=== PATIENT | male | born 1985 | race Caucasian/White ===

== ENCOUNTER → 2016-10-08 | Outpatient (CLI) | payer OTHER | LOC: COL.RAD 08:03 | DX: R31.9 Hematuria, unspecified (principal); Z87.442 Personal history of urinary calculi ==

== ENCOUNTER 2016-10-15 10:07 | Day surgery (SDC) | payer OTHER ==
[2016-10-15] VITALS (7 sets, daily range): BP systolic 107–145; BP diastolic 62–88; PULSE 53–63; TEMP 97.3–98.4
[~2016-10-15] VITALS: Ht 185.4 cm; Wt 114.8 kg
== END 2016-10-15 15:20 | disposition home or self-care (01) ==
LOC: SDCO 10:07
DX: N20.1 Calculus of ureter (principal); E78.5 Hyperlipidemia, unspecified; Z80.9 Family history of malignant neoplasm, unspecified; Z87.891 Personal history of nicotine dependence
CPT/HCPCS: C1769; C2617; J0690; J1885; J2405; J2704; J3010; J7120; Q9967

== ENCOUNTER 2017-07-08 07:28 | Emergency (ER) | payer OTHER ==
[~2017-07-08] VITALS: Ht 185.4 cm; Wt 113.6 kg
[2017-07-08 07:31] VITALS: TEMP 98.3
[2017-07-08 08:23] LABS: BASO % 0.8 % (0.0-2.0); EOS # 0.1 (0.0-0.7); EOS % 2.3 % (0-4.0); GRAN # 2.2 (1.4-6.5); GRAN % 47.3 % (42.2-75.2); HEMATOCRIT 46.6 % (42.0-52.0); HEMOGLOBIN 15.5 g/dl (13.5-18.0); LYMPH # 1.9 (1.2-3.4); LYMPH % 39.9 % (20.0-51.0); MEAN CELL VOLUME 86 fl (80.0-100.0); MEAN CORPUSCULAR HEMOGLOBIN 29 pg (27.0-31.0); MEAN CORPUSCULAR HGB CONC 33 g/dl (33.0-37.0); MEAN PLATELET VOLUME 9.6 fl (7.4-10.4); MONO # 0.4 (0.1-0.6); MONO % 9.3 % (1.7-9.3); PLATELET COUNT 197 K/mm3 (130-400); RED BLOOD COUNT 5.42 M/mm3 (4.20-5.60); WHITE BLOOD COUNT 4.7 K/mm3 (4.8-10.8)
[2017-07-08 08:42] LABS: ADJUSTED CALCIUM 9.5 mg/dL (8.4-10.2); ALANINE AMINOTRANSFERASE 68 U/L (21-72); ALBUMIN 4.7 gm/dL (3.5-5.0); ALKALINE PHOSPHATASE 75 U/L (50-136); ANION GAP 11 mmol/L (7-16); BILIRUBIN,TOTAL 0.7 mg/dL (0.0-1.0); BLOOD UREA NITROGEN 14 mg/dL (9-20); C-REACTIVE PROTEIN < 0.5 mg/dL (0.0-0.9); CALCIUM 10.1 mg/dL (8.4-10.2); CARBON DIOXIDE 26 mmol/L (22-30); CHLORIDE 102 mmol/L (98-107); CREATININE, serum 0.77 mg/dL (0.66-1.25); GLUCOSE 94 mg/dL (74-106); POTASSIUM 4.1 mmol/L (3.4-5.0); SODIUM 139 mmol/L (137-145); TOTAL PROTEIN 7.8 gm/dL (6.4-8.2)
[2017-07-08 08:48] LABS: COLLECTION METHOD CLEAN CATCH
[2017-07-08 08:51] LABS: TROPONIN-I < 0.012 ng/mL (0.000-0.034)
[2017-07-08 09:15] LABS: MUCOUS Present /lpf; PH 8 (5-8); SQUAMOUS EPITHELIAL None Seen /hpf; URINE APPEARANCE Hazy; URINE BACTERIA None Seen /hpf; URINE BILIRUBIN Negative (NEGATIVE); URINE BLOOD Negative (NEGATIVE); URINE COLOR Yellow; URINE GLUCOSE Negative (NEGATIVE); URINE KETONE Negative (NEGATIVE); URINE LEUKOCYTE ESTERASE Negative (NEGATIVE); URINE PROTEIN(semi-quant) Negative (NEGATIVE); URINE RBC 0-2 /hpf; URINE UROBILINOGEN Negative (NEGATIVE); URINE WBC 0-2 /hpf
[2017-07-08 09:50] VITALS: BP 133/89; PULSE 58
== END 2017-07-08 09:50 | disposition home or self-care (01) ==
LOC: COL.ER 07:28
PROVIDERS: Family Medicine
DX: E86.0 Dehydration (principal); R55 Syncope and collapse; Z87.442 Personal history of urinary calculi
CPT/HCPCS: J7030

== ENCOUNTER 2019-02-21 21:36 | Emergency (ER) | payer OTHER ==
[~2019-02-21] VITALS: Ht 185.4 cm; Wt 113.6 kg
[2019-02-21 21:46] VITALS: BP 127/59; TEMP 97.4
[2019-02-21] MEDS ORDERED: LEVAQUIN 750MG750 M1 PO (22:58)
[2019-02-21] MEDS ORDERED: CEPHALEXIN500 M1 PO (22:58)
[2019-02-21 23:27] VITALS: PULSE 71
== END 2019-02-21 23:27 | disposition home or self-care (01) ==
LOC: COL.ER 21:36
DX: S61.412A Laceration without foreign body of left hand, initial encounter (principal); Z23 Encounter for immunization; W26.0XXA Contact with knife, initial encounter; Y93.G1 Activity, food preparation and clean up; Y92.828 Other wilderness area as the place of occurrence of the external cause